=== PATIENT | female | born 1965 | race Caucasian/White ===

== ENCOUNTER 2021-07-04 11:10 | Emergency (ER) | payer BC ==
[~2021-07-04] VITALS: Ht 160 cm; Wt 86.2 kg
--- NOTE | ~2021-07-04 | EKG ---
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
[2021-07-04 11:43] LABS: ABSOLUTE NEUTROPHILS 8.1 thou/uL (1.4-8.2); BASOPHILS 0.2 % (0.0-2.0); EOSINOPHILS 2.9 % (0.0-3.0); HEMATOCRIT 39.9 % (37.0-47.0); HEMOGLOBIN 13.1 gm/dL (12.0-15.0); LYMPHOCYTES 13.9 % (24.0-44.0); MCH 29.1 pg (26.0-34.0); MCHC 32.8 g/dL (28.0-37.0); MCV 88.7 fL (80.0-100.0); MONOCYTES 10.8 % (1.0-8.0); PLATELET COUNT 371 thou/uL (150-400); POLYS 72.2 % (36.0-66.0); RBC 4.49 mil/uL (4.20-5.00); RDW 13.8 % (10.5-14.5); WBC 11.2 thou/uL (4.0-11.0)
[2021-07-04 11:50] LABS: CALCIUM 9.5 mg/dL (8.5-10.1); CREATININE 1.1 mg/dL (0.6-1.0); POTASSIUM 4.1 mmol/L (3.5-5.1)
[2021-07-04 12:00] LABS: ALBUMIN 3.9 g/dL (3.4-5.0); TOTAL BILIRUBIN 0.4 mg/dL (0.2-1.0); TOTAL PROTEIN 7.5 g/dL (6.4-8.2)
[2021-07-04] MEDS ORDERED: ALBUTEROL2.5 MG/0.1 INH (12:37)
[2021-07-04 12:55] VITALS: BP 132/73
== END 2021-07-04 12:55 | disposition home or self-care (01) ==
LOC: ER 11:10
PROVIDERS: Nurse Practitioner
DX: R05.9 Cough, unspecified (principal); J98.01 Acute bronchospasm